=== PATIENT | male | born 1975 | race Caucasian/White ===

== ENCOUNTER → 2016-12-26 | Outpatient (CLI) | payer BC ==
[2016-12-26 17:38] LABS: HEMOGLOBIN A1C 5.95 % (4.2-6.0); MEAN BLOOD GLUCOSE (CALC) 112.135 mg/dL
[2016-12-26 18:47] LABS: FREE T4 (FREE THYROXINE) 1.07 ng/dL (0.93-1.71)
== END ==
LOC: MOB LAB 15:02
PROVIDERS: ATTEND Family Medicine
DX: E03.9 Hypothyroidism, unspecified (principal); R73.9 Hyperglycemia, unspecified
CPT/HCPCS: 36415; 83036; 84439; 84443

== ENCOUNTER → 2017-03-20 | Outpatient (CLI) | payer BC ==
--- NOTE | 2017-03-21 09:37 | DI ---
XR KNEE CMPT 4 OR MORE VWS,03/20/2017 3:12 PM: Clinical History: Left knee pain. Previous Exam: None at this facility. Findings: 4 views of the left knee are obtained, and demonstrate anatomic alignment without fractures. Impression: Normal left knee.
== END ==
LOC: MOB RAD 15:16
PROVIDERS: ATTEND Physician Assistant Medical
DX: M25.562 Pain in left knee (principal); F17.200 Nicotine dependence, unspecified, uncomplicated
CPT/HCPCS: 73564